=== PATIENT | female | born 1980 | race Caucasian/White ===

== ENCOUNTER 2017-05-05 19:30 | Emergency (ER) | payer SELFPAY ==
[~2017-05-05] VITALS: Ht 177.8 cm; Wt 77.8 kg
[2017-05-05] MEDS ORDERED: IV NORMAL SALINE 1,000ML 1,000 ML IV ONE ×2 (20:15→21:30)
[2017-05-05] MEDS ORDERED: ONDANSETRON PF 4 MG/2 ML VIAL. ONE (20:16)
[2017-05-05 20:23] LABS: BASO % 1 % (0-3); EOS # 0.1 x10^3/uL (0.0-0.7); EOS % 1 % (0-3); HEMATOCRIT 38.9 % (36.0-47.0); HEMOGLOBIN 13.5 g/dL (12.0-15.5); LYMPH # 1.4 x10^3/uL (1.0-4.8); LYMPH % 17 % (24-48); MEAN CORPUSCULAR HEMOGLOBIN 31 pg (25-35); MEAN CORPUSCULAR HGB CONC 35 g/dL (31-37); MEAN CORPUSCULAR VOLUME 89 fL (79-100); MONO # 0.9 x10^3/uL (0.0-1.1); MONO % 11 % (0-9); NEUT # 5.6 x10^3uL (1.8-7.7); NEUT % 70 % (31-73); PLATELET COUNT 255 x10^3/uL (140-400); RED BLOOD COUNT 4.37 x10^6/uL (3.50-5.40); RED CELL DISTRIBUTION WIDTH 13.7 % (11.5-14.5)
[2017-05-05] MEDS ORDERED: ONDANSETRON PF 4 MG/2 ML VIAL. IV ONE (20:30)
[2017-05-05 20:33] LABS: BARBITURATES NEG (NEG); BENZODIAZEPINES NEG (NEG); CANNABINOIDS NEG (NEG); COCAINE NEG (NEG); METHADONE NEG (NEG); OPIATES NEG (NEG); PHENCYCLIDINE NEG (NEG)
[2017-05-05 20:34] LABS: AMPHETAMINE/METHAMPHETAMINE NEG (NEG)
[2017-05-05 20:37] LABS: ALBUMIN 3.6 g/dL (3.4-5.0); CALCIUM 8.8 mg/dL (8.5-10.1); CREATININE 0.9 mg/dL (0.6-1.0); DIRECT BILIRUBIN 0.1 mg/dL (0.0-0.2); GFR 70.1; MAGNESIUM 1.7 mg/dL (1.8-2.4); POTASSIUM 3.4 mmol/L (3.5-5.1); TOTAL BILIRUBIN 0.3 mg/dL (0.2-1.0); TOTAL PROTEIN 7.3 g/dL (6.4-8.2)
[2017-05-05 20:38] LABS: ACETAMIN 20.2 mcg/mL (10-30); ETHANOL < 10 mg/dL (0-10); SALIC 0.5 mg/dL (2.8-20.0)
[2017-05-05 20:48] LABS: BACTERIA,URINE FEW /HPF (0-FEW); BILIRUBIN,URINE NEG (NEG); CLARITY,URINE HAZY; COLOR,URINE YELLOW; GLUCOSE,URINE NEG (NEG); NITRITE,URINE NEG (NEG); SQUAMOUS EPITHELIAL CELL,UR MOD /LPF; UROBILINOGEN,URINE 0.2 mg/dL (0.2 mg/dL)
[2017-05-05 22:24] VITALS: BP 138/81
--- NOTE | 2017-05-05 22:48 | PHYS DOC ---
Past History Past Medical History: Asthma, Depression, Other Past Surgical History: No Surgical History Alcohol Use: Occasionally Drug Use: None Adult General Chief Complaint Chief Complaint: OVERDOSE HPI HPI 37-year-old male patient states she 2 through 15 pills of 500 mg Tylenol at 1430 because of suicidal ideation related to problem with her divorce and children. Patient states her friend talked to her and she decided to vomit the medication and made herself to vomit about an hour after ingestion. Patient states she doesn't feel suicidal anymore and wants to be checked for Tylenol overdose. Patient denies nausea, vomiting, chest pain, shortness of breath, focal neuro deficit, homicidal ideation and hallucination. Patient states she had previous suicidal attempt at age of 13. Review of Systems Review of Systems Constitutional: Denies fever or chills [] Eyes: Denies change in visual acuity, redness, or eye pain [] HENT: Denies nasal congestion or sore throat [] Respiratory: Denies cough or shortness of breath [] Cardiovascular: No additional information not addressed in HPI [] GI: Denies abdominal pain, nausea, vomiting, bloody stools or diarrhea [] : Denies dysuria or hematuria [] Musculoskeletal: Denies back pain or joint pain [] Integument: Denies rash or skin lesions [] Neurologic: Denies headache, focal weakness or sensory changes [] Endocrine: Denies polyuria or polydipsia [] All other systems were reviewed and found to be within normal limits, except as documented in this note. Current Medications Current Medications Current Medications Medications (Trade) Dose Ordered Sig/Hilaria Start Time Stop Time Status Last Admin Dose Admin Fentanyl Citrate (Fentanyl 2ml Vial) 50 mcg 1X ONCE 05/05/17 21:30 05/05/17 21:30 DC Ondansetron HCl (Zofran) 4 mg STK-MED ONCE 05/05/17 20:16 05/05/17 20:17 DC Sodium Chloride 1,000 ml @ 1,000 mls/hr 1X ONCE 05/05/17 21:30 05/05/17 21:30 DC Allergies Allergies Allergies Coded Allergies Type Severity Reaction Last Updated Verified Sulfa (Sulfonamide Antibiotics) Allergy Unknown 05/05/17 Yes Physical Exam Physical Exam Constitutional: Well developed, well nourished, no acute distress, non-toxic appearance. [] HENT: Normocephalic, atraumatic, bilateral external ears normal, oropharynx moist, no oral exudates, nose normal. [] Eyes: PERRLA, EOMI, conjunctiva normal, no discharge. [] Neck: Normal range of motion, no tenderness, supple, no stridor. [] Cardiovascular:Heart rate regular rhythm, no murmur [] Lungs & Thorax: Bilateral breath sounds clear to auscultation [] Abdomen: Bowel sounds normal, soft, no tenderness, no masses, no pulsatile masses. [] Skin: Warm, dry, no erythema, no rash. [] Back: No tenderness, no CVA tenderness. [] Extremities: No tenderness, no cyanosis, no clubbing, ROM intact, no edema. [] Neurologic: Alert and oriented X 3, normal motor function, normal sensory function, no focal deficits noted. [] Psychologic: Affect normal, judgement normal, mood normal, denies suicidal and homicidal ideation [] Current Patient Data Vital Signs Vital Signs Date Time Temp Pulse Resp B/P (MAP) Pulse Ox O2 Delivery O2 Flow Rate FiO2 05/05/17 22:10 94 13 140/76 (97) 98 Room Air 05/05/17 19:30 98.0 Lab Results Laboratory Tests Test 05/05/17 19:39 05/05/17 19:58 05/05/17 21:01 Urine Collection Type Unknown Urine Color Yellow Urine Clarity Hazy Urine pH 5.0 Urine Specific [place] 1.025 Urine Protein 100 mg/dl (NEG-TRACE) Urine Glucose (UA) Neg mg/dL (NEG) Urine Ketones (Stick) Neg mg/dL (NEG) Urine Blood Large (NEG) Urine Nitrite Neg (NEG) Urine Bilirubin Neg (NEG) Urine Urobilinogen Dipstick 0.2 mg/dL (0.2 mg/dL) Urine Leukocyte Esterase Neg (NEG) Urine RBC 11-20 /HPF (0-2) Urine WBC 5-10 /HPF (0-4) Urine Squamous Epithelial Cells Mod /LPF Urine Bacteria Few /HPF (0-FEW) Urine Mucus Mod /LPF Urine Test Negative (NEG) Urine Opiates Screen Neg (NEG) Urine Methadone Screen Neg (NEG) Urine Barbiturates Neg (NEG) Urine Phencyclidine Screen Neg (NEG) Urine Amphetamine/Methamphetamine Neg (NEG) Urine Benzodiazepines Screen Neg (NEG) Urine Cocaine Screen Neg (NEG) Urine Cannabinoids Screen Neg (NEG) Urine Ethyl Alcohol Neg (NEG) White Blood Count 8.0 x10^3/uL (4.0-11.0) Red Blood Count 4.37 x10^6/uL (3.50-5.40) Hemoglobin 13.5 g/dL (12.0-15.5) Hematocrit 38.9 % (36.0-47.0) Mean Corpuscular Volume 89 fL (79-100) Mean Corpuscular Hemoglobin 31 pg (25-35) Mean Corpuscular Hemoglobin Concent 35 g/dL (31-37) Red Cell Distribution Width 13.7 % (11.5-14.5) Platelet Count 255 x10^3/uL (140-400) Neutrophils (%) (Auto) 70 % (31-73) Lymphocytes (%) (Auto) 17 % (24-48) L Monocytes (%) (Auto) 11 % (0-9) H Eosinophils (%) (Auto) 1 % (0-3) Basophils (%) (Auto) 1 % (0-3) Neutrophils # (Auto) 5.6 x10^3uL (1.8-7.7) Lymphocytes # (Auto) 1.4 x10^3/uL (1.0-4.8) Monocytes # (Auto) 0.9 x10^3/uL (0.0-1.1) Eosinophils # (Auto) 0.1 x10^3/uL (0.0-0.7) Basophils # (Auto) 0.0 x10^3/uL (0.0-0.2) Sodium Level 143 mmol/L (136-145) Potassium Level 3.4 mmol/L (3.5-5.1) L Chloride Level 108 mmol/L (98-107) H Carbon Dioxide Level 24 mmol/L (21-32) Anion Gap 11 (6-14) Blood Urea Nitrogen 15 mg/dL (7-20) Creatinine 0.9 mg/dL (0.6-1.0) Estimated GFR (Cockcroft-Gault) 70.1 Glucose Level 98 mg/dL (70-99) Calcium Level 8.8 mg/dL (8.5-10.1) Magnesium Level 1.7 mg/dL (1.8-2.4) L Total Bilirubin 0.3 mg/dL (0.2-1.0) Direct Bilirubin 0.1 mg/dL (0.0-0.2) Aspartate Amino Transferase (AST) 17 U/L (15-37) Alanine Aminotransferase (ALT) 31 U/L (14-59) Alkaline Phosphatase 68 U/L (46-116) Total Protein 7.3 g/dL (6.4-8.2) Albumin 3.6 g/dL (3.4-5.0) Salicylates Level 0.5 mg/dL (2.8-20.0) L Salicylate Last Dose Date Unknown Salicylate Last Dose Time Unknown Acetaminophen Level 20.2 mcg/mL (10-30) Acetaminophen Last Dose Date Unknown Acetaminophen Last Dose Time Unknown Ethyl Alcohol Level < 10 mg/dL (0-10) POC Urine HCG, Qualitative hcg negative (Negative) EKG EKG EKG interpreted by me. EKG at 2004 showed[] normal sinus rhythm at rate of 86 with poor R-wave progress in anteroseptal leads without acute ST-T elevation. Radiology/Procedures Radiology/Procedures [] Course & Med Decision Making Course & Med Decision Making Pertinent Labs reviewed. (See chart for details) Evaluation of patient in ER showed 37-year-old female patient with overdose of 7.5 g of Tylenol at 1430 with Tylenol level of 20 without concern for toxic level of Tylenol about 6 hours after ingestion. Patient denied suicidal ideation at arrival to ER and was evaluated by [facility] staff who did not recommend inpatient treatment and suggested to discharge patient home.. Patient presented to ER and patient feels comfortable to go home with her and follow up with [facility] appointment. Patient signed a safety plan before discharge from emergency room and denied suicidal and homicidal ideation and hallucination. Patient states he is going to stay with her overnight and keeps eye on her. Patient instructed to avoid of taking any more Tylenol for the next several days. Dragon Disclaimer Dragon Disclaimer This electronic medical record was generated, in whole or in part, using a voice recognition dictation system. Departure Departure: Impression: Primary Impression: Intentional acetaminophen overdose Disposition: HOME, SELF-CARE (At 2246) Condition: IMPROVED Referrals: JIM CONTE MD (PCP) Patient Instructions: Acetaminophen Ingestion-Brief Additional Instructions: Follow-up with [facility] appointment tomorrow LUCHO BUSH MD May 05, 2017 22:48
--- NOTE | 2017-05-05 23:29 | EKG ---
[address] [address] Test Date: 2017-05-05 Test Time: 20:05:59 Pat Name: CHARISMA COOL Department: Room: Gender: F Hospital Personnel Director: JACQUES : 1980 Requested By: LUCHO BUSH Order Number: [id number] Reading MD: Measurements Intervals [place] Rate: 86 P: 45 MD: 138 QRS: 44 QRSD: 82 T: 36 QT: 356 QTc: 429 Interpretive Statements SINUS RHYTHM QRS(T) CONTOUR ABNORMALITY CONSIDER ANTEROSEPTAL MYOCARDIAL DAMAGE POSSIBLY ABNORMAL ECG RI6.01 Unconfirmed report No previous ECG available for comparison
== END 2017-05-05 23:30 | disposition home or self-care (01) ==
LOC: ER 19:30
DX: T39.1X2A Poisoning by 4-Aminophenol derivatives, intentional self-harm, initial encounter (principal); Y92.89 Other specified places as the place of occurrence of the external cause; F32.9 Major depressive disorder, single episode, unspecified; J45.909 Unspecified asthma, uncomplicated; Z88.2 Allergy status to sulfonamides
CPT/HCPCS: 36415; 80048; 80076; 80307; 81001; 81025; 83735; 85025; 87086; 93005; 96361; 96374; 99285; G0480; J2405; G0479; J7030

== ENCOUNTER 2017-07-13 18:25 | Inpatient (IN) | payer SELFPAY ==
[~2017-07-13] VITALS: Ht 177.8 cm; Wt 79.1 kg
[~2017-07-13 18:25] MED LIST: ACETYLCYSTEINE IV ONE; DEXTROSE 5% IV ONE
--- NOTE | 2017-07-13 18:35 | ED.ADGEN ---
Past History Past Medical History: Asthma, Depression, Other Past Surgical History: No Surgical History Alcohol Use: Occasionally Drug Use: None Adult General Chief Complaint Chief Complaint " I was trying to kill myself by taking an over dose of tylenol. .. My is going to divorce me.. so I don't want to live any longer... " " We been in a divorce mode for about 8 months. ... and I cheated on him about 4 months ago... and I guess that was the last straw.. and he see no way to put that behind ... So I am going to kill myself.. ... at some point if this over dose does not do it...".." She the same nurse that took care of me before.." HPI HPI Patient is a 37 year old female who presents with above hx and suicide attempt by ingestion of Tylenol. Patient has taken all with approximate one bottle acetaminophen ( 225 /325mg ) . Approximately 1 hr. prior to arrival. Pt. has past history of depression. Hs 2 prior episodes of suicide attempt one age 13, another on May.05 of this past year consisting of OD of acetaminophen. Patient denies ingestion of other drugs currently. Patient denies illicit drug use. Patient follows at [facility]. Patient has 3 children ages 19, 15 and 13. Review of Systems Review of Systems Pt. complaints of depression and hopeless Constitutional: Denies fever or chills [] Eyes: Denies change in visual acuity, redness, or eye pain [] HENT: Denies nasal congestion or sore throat [] Respiratory: Denies cough or shortness of breath [] Cardiovascular: No additional information not addressed in HPI [] GI: Denies abdominal pain, , vomiting, bloody stools or diarrhea [patient] complains of nausea : Denies dysuria or hematuria [] Musculoskeletal: Denies back pain or joint pain [] Integument: Denies rash or skin lesions [] Neurologic: Denies headache, focal weakness or sensory changes [] Endocrine: Denies polyuria or polydipsia [] All other systems were reviewed and found to be within normal limits, except as documented in this note. Family History Family History Non-contributory Current Medications Current Medications Current Medications Medications (Trade) Dose Ordered Sig/Hilaria Start Time Stop Time Status Last Admin Dose Admin Acetylcysteine 3.74 gm/Dextrose 518.7 ml @ 125 mls/hr 1X ONCE 07/13/17 00:45 07/13/17 23:11 DC Lactated Ringer's 1,000 ml @ 1,000 mls/hr Q1H 07/13/17 18:36 07/13/17 19:35 DC 07/13/17 19:00 1,000 MLS/HR Allergies Allergies Allergies Coded Allergies Type Severity Reaction Last Updated Verified Sulfa (Sulfonamide Antibiotics) Allergy Unknown 05/05/17 Yes Physical Exam Physical Exam Constitutional: Well developed, well nourished, no acute distress, non-toxic appearance. [] HENT: Normocephalic, atraumatic, bilateral external ears normal, oropharynx moist, no oral exudates, nose normal. [] Eyes: PERRLA, EOMI, conjunctiva normal, no discharge. [] Neck: Normal range of motion, no tenderness, supple, no stridor. [] Cardiovascular:Heart rate regular rhythm, no murmur [] Lungs & Thorax: Bilateral breath sounds clear to auscultation [] Abdomen: Bowel sounds normal, soft, no tenderness, no masses, no pulsatile masses. [] Skin: Warm, dry, no erythema, no rash. [] Back: No tenderness, no CVA tenderness. [] Extremities: No tenderness, no cyanosis, no clubbing, ROM intact, no edema. [] Neurologic: Alert and oriented X 3, normal motor function, normal sensory function, no focal deficits noted. [] Psychologic: Affect flat, judgement poor insight, mood depressed. Current Patient Data Vital Signs Vital Signs Date Time Temp Pulse Resp B/P (MAP) Pulse Ox O2 Delivery O2 Flow Rate FiO2 07/13/17 18:35 98.1 95 20 98 Room Air Lab Results Laboratory Tests Test 07/13/17 18:55 White Blood Count 9.4 x10^3/uL (4.0-11.0) Red Blood Count 4.56 x10^6/uL (3.50-5.40) Hemoglobin 13.8 g/dL (12.0-15.5) Hematocrit 40.3 % (36.0-47.0) Mean Corpuscular Volume 88 fL (79-100) Mean Corpuscular Hemoglobin 30 pg (25-35) Mean Corpuscular Hemoglobin Concent 34 g/dL (31-37) Red Cell Distribution Width 13.2 % (11.5-14.5) Platelet Count 267 x10^3/uL (140-400) Neutrophils (%) (Auto) 76 % (31-73) H Lymphocytes (%) (Auto) 14 % (24-48) L Monocytes (%) (Auto) 10 % (0-9) H Eosinophils (%) (Auto) 1 % (0-3) Basophils (%) (Auto) 0 % (0-3) Neutrophils # (Auto) 7.2 x10^3uL (1.8-7.7) Lymphocytes # (Auto) 1.3 x10^3/uL (1.0-4.8) Monocytes # (Auto) 0.9 x10^3/uL (0.0-1.1) Eosinophils # (Auto) 0.0 x10^3/uL (0.0-0.7) Basophils # (Auto) 0.0 x10^3/uL (0.0-0.2) Prothrombin Time 12.5 SEC (9.4-11.4) H Prothrombin Time INR 1.2 (0.9-1.1) H PTT 25 SEC (23-33) Maternal Serum HCG Beta Subunit < 1 mIU/mL (0-6) Sodium Level 140 mmol/L (136-145) Potassium Level 3.1 mmol/L (3.5-5.1) L Chloride Level 104 mmol/L (98-107) Carbon Dioxide Level 23 mmol/L (21-32) Anion Gap 13 (6-14) Blood Urea Nitrogen 18 mg/dL (7-20) Creatinine 1.0 mg/dL (0.6-1.0) Estimated GFR (Cockcroft-Gault) 62.1 Glucose Level 123 mg/dL (70-99) H Lactic Acid Level 1.0 mmol/L (0.4-2.0) Calcium Level 8.8 mg/dL (8.5-10.1) Magnesium Level 1.6 mg/dL (1.8-2.4) L Total Bilirubin 0.3 mg/dL (0.2-1.0) Direct Bilirubin 0.1 mg/dL (0.0-0.2) Aspartate Amino Transferase (AST) 18 U/L (15-37) Alanine Aminotransferase (ALT) 32 U/L (14-59) Alkaline Phosphatase 74 U/L (46-116) Ammonia 11 mcmol/L (11-34) Troponin I Quantitative < 0.017 ng/mL (0-0.055) Total Protein 7.9 g/dL (6.4-8.2) Albumin 3.8 g/dL (3.4-5.0) Lipase 114 U/L (73-393) Salicylates Level 1.1 mg/dL (2.8-20.0) L Salicylate Last Dose Date Unk Salicylate Last Dose Time Unk Acetaminophen Level 145.8 mcg/mL (10-30) H Acetaminophen Last Dose Date Unk Acetaminophen Last Dose Time Unk Ethyl Alcohol Level < 10 mg/dL (0-10) EKG EKG [] Radiology/Procedures Radiology/Procedures [] Course & Med Decision Making Course & Med Decision Making Pertinent Labs and Imaging studies reviewed. (See chart for details) Discussed presentation, testing and tx. plan with Dr. Wolfe- Will admit for observation. Counseling will not do psych. assessment at this time Poison Control advise pt. not candidate for Mucomyst at this time. Initial acetaminophen level 145 and repeat was 113 approximate 4 hours. [] Final Impression Final Impression 1. Suicide attempt overdose of acetaminophen 2. Depression 3. Hypomagnesemia 4. Hypokalemia 5. Anxiety Problems: Dragon Disclaimer Dragon Disclaimer This electronic medical record was generated, in whole or in part, using a voice recognition dictation system. COLTON SALDAÑA MD Jul 13, 2017 18:35
[2017-07-13] MEDS ORDERED: IV RINGERS SOLUTION,LACTATED 1,000 ML IV SCH ×2 (18:36→22:00)
--- NOTE | 2017-07-13 19:00 | EKG ---
[address] [address] Test Date: 2017-07-13 Test Time: 18:50:18 Pat Name: CHARISMA COOL Department: Room: Gender: F [employer] M[employer] Reader: : 1980 Requested By: COLTON SALDAÑA Order Number: [id number] Reading MD: Measurements Intervals [place] Rate: 96 P: 11 GA: 134 QRS: 39 QRSD: 78 T: 18 QT: 344 QTc: 435 Interpretive Statements SINUS RHYTHM NORMAL ECG RI6.01 No previous ECG available for comparison
[2017-07-13 19:35] LABS: BASO % 0 % (0-3); EOS % 1 % (0-3); HEMATOCRIT 40.3 % (36.0-47.0); HEMOGLOBIN 13.8 g/dL (12.0-15.5); LYMPH # 1.3 x10^3/uL (1.0-4.8); LYMPH % 14 % (24-48); MEAN CORPUSCULAR HEMOGLOBIN 30 pg (25-35); MEAN CORPUSCULAR HGB CONC 34 g/dL (31-37); MEAN CORPUSCULAR VOLUME 88 fL (79-100); MONO # 0.9 x10^3/uL (0.0-1.1); MONO % 10 % (0-9); NEUT # 7.2 x10^3uL (1.8-7.7); NEUT % 76 % (31-73); PLATELET COUNT 267 x10^3/uL (140-400); RED BLOOD COUNT 4.56 x10^6/uL (3.50-5.40); RED CELL DISTRIBUTION WIDTH 13.2 % (11.5-14.5); WHITE BLOOD COUNT 9.4 x10^3/uL (4.0-11.0)
[2017-07-13 19:40] LABS: ETHANOL < 10 mg/dL (0-10); SALIC 1.1 mg/dL (2.8-20.0)
[2017-07-13 19:41] LABS: ALBUMIN 3.8 g/dL (3.4-5.0); CALCIUM 8.8 mg/dL (8.5-10.1); DIRECT BILIRUBIN 0.1 mg/dL (0.0-0.2); GFR 62.1; MAGNESIUM 1.6 mg/dL (1.8-2.4); POTASSIUM 3.1 mmol/L (3.5-5.1); TOTAL BILIRUBIN 0.3 mg/dL (0.2-1.0); TOTAL PROTEIN 7.9 g/dL (6.4-8.2)
[2017-07-13 19:42] LABS: ACETAMIN 145.8 mcg/mL (10-30)
[2017-07-13] MEDS ORDERED: ONDANSETRON PF 4 MG/2 ML VIAL. IV PRN (21:15)
[2017-07-13] MEDS ORDERED: ONDANSETRON PF 4 MG/2 ML VIAL. IV ONE (22:00)
[2017-07-13 22:17] LABS: ACETAMIN 113.5 mcg/mL (10-30); SALIC 1.2 mg/dL (2.8-20.0)
[2017-07-13] MEDS ORDERED: DEXTROSE 5% IV ONE (22:45)
[2017-07-13] MEDS ORDERED: ACETYLCYSTEINE IV ONE (22:45)
[2017-07-13] MEDS ORDERED: MAGNESIUM SULFATE 2GM 50 ML IV ONE (23:00)
[2017-07-14 00:23] LABS: BACTERIA,URINE 0 /HPF (0-FEW); BILIRUBIN,URINE NEG (NEG); CLARITY,URINE HAZY; COLOR,URINE YELLOW; GLUCOSE,URINE NEG (NEG); NITRITE,URINE NEG (NEG); RBC,URINE OCC /HPF (0-2); SQUAMOUS EPITHELIAL CELL,UR MANY /LPF; UROBILINOGEN,URINE 0.2 mg/dL (0.2 mg/dL); WBC,URINE OCC /HPF (0-4)
[2017-07-14 00:27] LABS: BARBITURATES NEG (NEG); BENZODIAZEPINES NEG (NEG); CANNABINOIDS NEG (NEG); COCAINE NEG (NEG); METHADONE NEG (NEG); OPIATES NEG (NEG); PHENCYCLIDINE NEG (NEG)
[2017-07-14 00:28] LABS: AMPHETAMINE/METHAMPHETAMINE NEG (NEG)
[2017-07-14] MEDS ORDERED: DEXTROSE 5% IV ONE ×2 (00:45→05:00)
[2017-07-14] MEDS ORDERED: ACETYLCYSTEINE IV ONE ×2 (00:45→05:00)
[2017-07-14 01:02] VITALS: BP 159/89
[2017-07-14 01:17] LABS: ALBUMIN 3.3 g/dL (3.4-5.0); DIRECT BILIRUBIN 0.1 mg/dL (0.0-0.2); TOTAL BILIRUBIN 0.4 mg/dL (0.2-1.0); TOTAL PROTEIN 6.9 g/dL (6.4-8.2)
[2017-07-14 03:08] LABS: BASO % 0 % (0-3); EOS # 0.1 x10^3/uL (0.0-0.7); EOS % 1 % (0-3); HEMATOCRIT 34.9 % (36.0-47.0); LYMPH # 1.8 x10^3/uL (1.0-4.8); LYMPH % 24 % (24-48); MEAN CORPUSCULAR HEMOGLOBIN 31 pg (25-35); MEAN CORPUSCULAR HGB CONC 34 g/dL (31-37); MEAN CORPUSCULAR VOLUME 89 fL (79-100); MONO # 0.8 x10^3/uL (0.0-1.1); MONO % 11 % (0-9); NEUT # 4.7 x10^3uL (1.8-7.7); NEUT % 64 % (31-73); PLATELET COUNT 241 x10^3/uL (140-400); RED BLOOD COUNT 3.94 x10^6/uL (3.50-5.40); RED CELL DISTRIBUTION WIDTH 13.2 % (11.5-14.5); WHITE BLOOD COUNT 7.4 x10^3/uL (4.0-11.0)
[2017-07-14 03:18] LABS: CALCIUM 7.9 mg/dL (8.5-10.1); CREATININE 0.8 mg/dL (0.6-1.0); GFR 80.3; POTASSIUM 3.1 mmol/L (3.5-5.1)
[2017-07-14 03:22] LABS: ACETAMIN 38.2 mcg/mL (10-30)
[2017-07-14 05:09] VITALS: BP 151/87
--- NOTE | 2017-07-14 08:03 | RAD ---
Single view of the Chest 07/13/2017 8:36 PM Indication: OVERDOSE Comparison: None Findings: There is no focal consolidation or infiltrate identified. There is no effusion or pneumothorax. The cardiomediastinal silhouette and pulmonary vasculature are within normal limits. No osseous abnormality is identified. Impression: No evidence of acute cardiopulmonary process.
[2017-07-14] MEDS ORDERED: ACETYLCYSTEINE 20% ORAL SOLN 600 MG/3 ML SYRINGE. PO SCH (09:00)
[2017-07-14 15:51] VITALS: BP 134/70
--- NOTE | 2017-07-14 21:07 | SSS ---
ADMIT DATE: 07/14/2017 HISTORY OF PRESENT ILLNESS: The patient is a 37-year-old female patient who came to the Emergency Room stating that she was trying to kill herself by taking an overdose of Tylenol. Her is going to divorce her and I don't want to live any longer. He had been in the divorce mode for about 8 months and I cheated on him about 4 months ago and that was the last throw, and he saw no way to put that behind and apparently has attempted suicide before. She was evaluated in the Emergency Room and apparently she took about 50 tablets of regular strength Tylenol approximately an hour before arrival. Her 2 prior episodes of attempts done at the age of 13 and other one on 05/05/2017, an overdose of acetaminophen. She denied any ingestion of any other drugs. She denied use of any illicit drugs. She normally follows at [facility]. She has 3 children, age 19, 15 and 13. She was basically evaluated in the Emergency Room, with the collaboration with the poison control center, her acetaminophen level has dropped down from 145 to 113 and 38, and did not require any antidote. she was given antidote once IV initially and she remained stable. Her lab work also remained stable and she was seen by the counselor from [facility] who recommended that she can be safely discharged home for her to follow with him tomorrow. PAST MEDICAL HISTORY: Significant for immune thrombocytopenia, depression and environmental-induced asthma. PAST SURGICAL HISTORY: D and C. ALLERGIES: She is allergic to SULFA DRUGS, SHELLFISH. MEDICATIONS: She is on no medications at home. FAMILY HISTORY: She has 8 brothers. They are all half-brothers and one half-sister. Her father is alive at age of 65 and healthy. Mother is at age 59, has diabetes. SOCIAL HISTORY: She is in the process of divorce. She has 3 kids. She never smoked. Drinks alcohol once in a blue green, does not use any drugs. She is an weapons officer naval activity. REVIEW OF SYSTEMS: As was unremarkable. PHYSICAL EXAMINATION GENERAL: When I examined her, she looked well and was clearly in no apparent respiratory distress, pale, but no jaundice, cyanosis or thyromegaly, no jugular venous distention. No lower limb edema. VITAL SIGNS: Her heart rate was 80, blood pressure was 134/70, temperature was 98.2, respiratory rate 20, and oxygen saturation was 94%. HEAD, EYES, NOSE, AND THROAT: Showed normocephalic, atraumatic. NECK: Supple. HEART: Showed normal first and second sounds. No gallop, rub or murmur. CHEST: Clear to auscultation. No crepitation or rhonchi. ABDOMEN: Distended, soft, nontender. No guarding or rigidity. No organomegaly. Hernial orifice intact. Bowel sounds normal. NEUROLOGIC: She is awake, alert, responding appropriately. Cranial nerves intact. EXTREMITIES: She moves extremities without difficulty. She ambulates without assistance or assistive devices. LABORATORY DATA: On arrival showed a serum sodium 140, potassium 3.1, chloride 104, bicarbonate 23, anion gap of 13, BUN 18, creatinine 1, estimated GFR was 62 mL per minute. Her glucose 123, calcium was 8.8, magnesium was 1.6. Total bilirubin, AST, ALT, alkaline phosphatase were normal. Total protein 7.9, albumin 3.8, lipase 114. TSH was 2.68. Her prothrombin time was 12.5, INR of 1.2, aPTT was 25. Urinalysis was unremarkable and toxic screen showed positive for acetaminophen, initially at 145 mcg/mL at around 1900; at almost 2200, it was down to 113, and at 3:00 in the morning it was 38. Basically, she was evaluated by the [facility] and she will be discharged home to follow the [facility] tomorrow. PRATEEK ALCAZAR MD DR: ALEX/tom JOB#: [id number] / [id number]
== END 2017-07-14 19:06 | disposition home or self-care (01) | DRG 918 ==
LOC: ER 18:25 → 1 SOUTH 20:00
PROVIDERS: ADMIT Internal Medicine; ATTEND Internal Medicine
DX: T39.1X2A Poisoning by 4-Aminophenol derivatives, intentional self-harm, initial encounter (principal); D69.3 Immune thrombocytopenic purpura; Y92.89 Other specified places as the place of occurrence of the external cause; E83.42 Hypomagnesemia; E87.6 Hypokalemia; F41.9 Anxiety disorder, unspecified; F32.9 Major depressive disorder, single episode, unspecified; J45.909 Unspecified asthma, uncomplicated; Z83.3 Family history of diabetes mellitus; Z88.2 Allergy status to sulfonamides; Z91.013 Allergy to seafood
CPT/HCPCS: 36415; 71045; 80048; 80076; 80307; 81001; 82140; 83605; 83690; 83735; 84443; 84484; 84702; 85025; 85610; 85730; 93005; G0480; J2405; J3475; J7120; G0479

== ENCOUNTER 2018-01-25 01:45 | Emergency (ER) | payer SELFPAY ==
[~2018-01-25] VITALS: Ht 177.8 cm; Wt 70.8 kg
[2018-01-25 01:55] VITALS: BP 136/73
[2018-01-25] MEDS ORDERED: NAPROXEN 500 MG TABLET PO ONE (02:15)
[2018-01-25] MEDS ORDERED: AMOXICILLIN/K CLAV 875/125MG TABLET. PO ONE (02:15)
--- NOTE | 2018-01-25 02:17 | PHYS DOC ---
Past History Past Medical History: Other Past Surgical History: No Surgical History Alcohol Use: None Drug Use: None Adult General Chief Complaint Chief Complaint: EARACHE/EAR PAIN HPI HPI 38-year-old female presents with left ear pain for the last 2 days. Patient states the pain as a throbbing sensation in his been getting worse. She is having difficulty sleeping so she came to the ED. She is concerned for ear infection. The patient also has several flea bites on her head and face was unsure if she got a bite inside her ear. She denies fever or chills. She has no other complaints. Review of Systems Review of Systems Constitutional: Denies fever or chills [] Eyes: Denies change in visual acuity, redness, or eye pain [] HENT: Left ear pain[] Respiratory: Denies cough or shortness of breath [] Cardiovascular: No additional information not addressed in HPI [] GI: Denies abdominal pain, nausea, vomiting, bloody stools or diarrhea [] : Denies dysuria or hematuria [] Musculoskeletal: Denies back pain or joint pain [] Integument: Denies rash or skin lesions [] Neurologic: Denies headache, focal weakness or sensory changes [] Endocrine: Denies polyuria or polydipsia [] All other systems were reviewed and found to be within normal limits, except as documented in this note. Allergies Allergies Allergies Coded Allergies Type Severity Reaction Last Updated Verified Sulfa (Sulfonamide Antibiotics) Allergy Intermediate 07/14/17 Yes Physical Exam Physical Exam Constitutional: Well developed, well nourished, no acute distress, non-toxic appearance. [] HENT: Normocephalic, atraumatic, bilateral external ears normal, oropharynx moist, no oral exudates, nose normal. Patient's left ear was extremely sensitive to touch. I had a limited view of her tympanic membrane due to the pain. It does not appear to be infected.[] Eyes: PERRLA, EOMI, conjunctiva normal, no discharge. [] Neck: Normal range of motion, no tenderness, supple, no stridor. [] Cardiovascular:Heart rate regular rhythm, no murmur [] Lungs & Thorax: Bilateral breath sounds clear to auscultation [] Abdomen: Bowel sounds normal, soft, no tenderness, no masses, no pulsatile masses. [] Skin: Warm, dry, no erythema, no rash. [] Back: No tenderness, no CVA tenderness. [] Extremities: No tenderness, no cyanosis, no clubbing, ROM intact, no edema. [] Neurologic: Alert and oriented X 3, normal motor function, normal sensory function, no focal deficits noted. [] Psychologic: Affect normal, judgement normal, mood normal. [] Current Patient Data Vital Signs Vital Signs Date Time Temp Pulse Resp B/P (MAP) Pulse Ox O2 Delivery O2 Flow Rate FiO2 01/25/18 01:55 81 18 97 Room Air EKG EKG [] Radiology/Procedures Radiology/Procedures [] Course & Med Decision Making Course & Med Decision Making Pertinent Labs and Imaging studies reviewed. (See chart for details) Given the patient's history and extreme sensitivity in the left ear, I will go ahead and treat her with Augmentin for 10 days. I only got a limited view of her tympanic membrane so it is possible that she has an otitis media that was out side of my view. Her external auditory canals normal. She is stable for discharge at this time. I will give her first dose of Augmentin in the ED as well as naproxen for pain. [] Dragon Disclaimer Dragon Disclaimer This electronic medical record was generated, in whole or in part, using a voice recognition dictation system. Departure Departure: Referrals: JIM CONTE MD (PCP) Scripts No Active Prescriptions or Reported Meds IRASEMA OVIEDO DO Jan 25, 2018 02:17
[2018-01-25] MEDS ORDERED: AMOX1TAB61 PO (02:18)
[2018-01-25] MEDS ORDERED: NAPROXEN 500 MG TABLET ONE (02:19)
[2018-01-25] MEDS ORDERED: AMOXICILLIN/K CLAV 875/125MG TABLET. ONE (02:19)
== END 2018-01-25 02:25 | disposition home or self-care (01) ==
LOC: ER 01:54
DX: H92.02 Otalgia, left ear (principal); Z88.2 Allergy status to sulfonamides
CPT/HCPCS: 99283

== ENCOUNTER 2019-04-22 11:02 | Emergency (ER) | payer SELFPAY ==
[~2019-04-22] VITALS: Ht 177.8 cm; Wt 77.1 kg
[~2019-04-22 11:02] MED LIST changes: -ACETYLCYSTEINE IV ONE; +AMOX1TAB61 PO; -DEXTROSE 5% IV ONE
[2019-04-22 11:05] VITALS: BP 138/82
[2019-04-22] MEDS ORDERED: IBUP400T18 PO (11:37)
--- NOTE | 2019-04-22 14:46 | PHYS DOC ---
Past History Past Medical History: Other Past Surgical History: No Surgical History Alcohol Use: None Drug Use: None Adult General Chief Complaint Chief Complaint: FOOT INJURY PAIN HPI HPI Patient is a 39-year-old female who is presenting with chief complaint of foot pain she has heel pain when standing for too long as per present for several days no trauma no fever no past medical history pain is moderate mostly on the heel on the bottom of the foot Allergies Allergies Allergies Coded Allergies Type Severity Reaction Last Updated Verified Sulfa (Sulfonamide Antibiotics) Allergy Intermediate 07/14/17 Yes Physical Exam Physical Exam Constitutional: Well developed, well nourished, no acute distress, non-toxic appearance. [] HENT: Normocephalic, atraumatic, bilateral external ears normal, oropharynx moist, no oral exudates, nose normal. [] Back: No tenderness, no CVA tenderness. [] Extremities: Tenderness to palpation noted at the heel at the insertion of the plantar ligament Neurologic: Alert and oriented X 3, normal motor function, normal sensory function, no focal deficits noted. [] Psychologic: Affect normal, judgement normal, mood normal. [] Current Patient Data Vital Signs Vital Signs Date Time Temp Pulse Resp B/P (MAP) Pulse Ox O2 Delivery O2 Flow Rate FiO2 04/22/19 11:05 98.3 85 16 98 Room Air 04/22/19 11:02 138/82 (100) EKG EKG [] Radiology/Procedures Radiology/Procedures [] Course & Med Decision Making Course & Med Decision Making Pertinent Labs and Imaging studies reviewed. (See chart for details) []Suspect plantar fasciitis recommended conservative management Dragon Disclaimer Dragon Disclaimer This electronic medical record was generated, in whole or in part, using a voice recognition dictation system. Departure Departure: Impression: Primary Impression: Plantar fasciitis Disposition: HOME, SELF-CARE Condition: STABLE Patient Instructions: Plantar Fasciitis Scripts Ibuprofen (IBUPROFEN) 400 Mg Tablet 1 TAB PO PRN Q6HRS PRN for PAIN, #20 TAB Prov: PHILIP WAY MD 04/22/[address] MD Apr 22, 2019 14:46
== END 2019-04-22 11:45 | disposition home or self-care (01) ==
LOC: ER 11:02
DX: M72.2 Plantar fascial fibromatosis (principal); Z88.2 Allergy status to sulfonamides
CPT/HCPCS: 99282